=== PATIENT | female | born 1970 | race Caucasian/White ===

== ENCOUNTER → 2024-05-25 08:13 | Outpatient (BNVA) | payer OTHER, SELFPAY | PROVIDERS: PCP Family Medicine; Visit Provider Podiatrist Foot & Ankle Surgery | DX: Q82.8 Other specified congenital malformations of skin (principal); M79.671 Pain in right foot; M79.672 Pain in left foot; M06.9 Rheumatoid arthritis, unspecified | CPT/HCPCS: 73630 ==